=== PATIENT | female | born 1950 | race Caucasian/White ===

== ENCOUNTER 2017-09-14 05:33 | Inpatient (IN) | payer MEDICARE ==
[2017-09-14] MEDS: MORPHINE SULFATE 4 MG/ML DISP.SYRIN. IV/SQ ×4 (06:20→11:04)
[2017-09-14 09:20] LABS: BASO # 0.1 x10^3/uL (0.0-0.2); BASO % 1 % (0-3); EOS # 0.1 x10^3/uL (0.0-0.7); EOS % 1 % (0-3); HEMATOCRIT 24.4 % (36.0-47.0); HEMOGLOBIN 7.6 g/dL (12.0-15.5); LYMPH # 2.3 x10^3/uL (1.0-4.8); LYMPH % 15 % (24-48); MEAN CORPUSCULAR HEMOGLOBIN 27 pg (25-35); MEAN CORPUSCULAR HGB CONC 31 g/dL (31-37); MEAN CORPUSCULAR VOLUME 85 fL (79-100); MONO # 0.9 x10^3/uL (0.0-1.1); MONO % 6 % (0-9); NEUT % 78 % (31-73); PLATELET COUNT 366 x10^3/uL (140-400); RED BLOOD COUNT 2.86 x10^6/uL (3.50-5.40); RED CELL DISTRIBUTION WIDTH 17.8 % (11.5-14.5); WHITE BLOOD COUNT 15.4 x10^3/uL (4.0-11.0)
[2017-09-14 09:31] LABS: ADD MAN DIFF? YES
[2017-09-14 10:06] LABS: PROTHROMBIN TIME PATIENT 117.3 SEC (11.7-14.0)
[2017-09-14 10:08] LABS: INR > 15.0 (0.8-1.1)
[2017-09-14] MEDS ORDERED: ACETAMINOPHEN 325 MG TABLET. PO (10:30)
[2017-09-14] MEDS: PHYTONADIONE (VIT K1) IV 10 MG in IV NORMAL SALINE 50ML 50 ML IV (10:36)
[2017-09-14 10:56] LABS: ALBUMIN/GLOBULIN RATIO 0.4 (1.0-1.7); ALK PHOS 92 U/L (46-116); ALT (SGPT) 21 U/L (14-59); ANION GAP 9 (6-14); AST (SGOT) 20 U/L (15-37); BLOOD UREA NITROGEN 32 mg/dL (7-20); BUN/CREATININE RATIO 18 (6-20); CALCIUM 8.2 mg/dL (8.5-10.1); CARBON DIOXIDE 29 mmol/L (21-32); CHLORIDE 103 mmol/L (98-107); CREATININE 1.8 mg/dL (0.6-1.0); GFR 27.9; GLUCOSE 148 mg/dL (70-99); POTASSIUM 4.5 mmol/L (3.5-5.1); SODIUM 141 mmol/L (136-145); TOTAL BILIRUBIN 0.4 mg/dL (0.2-1.0); TOTAL PROTEIN 6.5 g/dL (6.4-8.2)
[2017-09-14 11:08] LABS: % BANDS 1 % (0-9); % LYMPHS 13 % (24-48); % MONOS 3 % (0-10); % SEGS 83 % (35-66); PLT ESTIMATE ADEQUATE (ADEQUATE)
[2017-09-14] MEDS: CHOLECALCIFEROL (VITAMIN D3) 5,000 UNIT CAPSULE PO (13:06)
[2017-09-14] MEDS: METOPROLOL TART IMMED RELEASE 25 MG TABLET. PO ×2 (13:07→20:24)
[2017-09-14] MEDS: FERROUS SULFATE 325 MG TABLET. PO (13:07)
[2017-09-14] MEDS: FUROSEMIDE 20 MG TABLET PO (13:07)
[2017-09-14] MEDS: MORPHINE SULFATE 4 MG/ML DISP.SYRIN. IV ×2 (13:30→20:12)
[2017-09-14 14:46] LABS: IMMEDIATE SPIN CROSSMATCH 1 6
[2017-09-14] MEDS: ONDANSETRON PF 4 MG/2 ML VIAL. IV (20:12)
[2017-09-15] MEDS: MORPHINE SULFATE 4 MG/ML DISP.SYRIN. IV (04:52)
[2017-09-15 05:30] LABS: ADD MAN DIFF? NO
[2017-09-15 05:42] LABS: BASO # 0.1 x10^3/uL (0.0-0.2); BASO % 1 % (0-3); EOS # 0.2 x10^3/uL (0.0-0.7); EOS % 1 % (0-3); LYMPH # 4.5 x10^3/uL (1.0-4.8); LYMPH % 22 % (24-48); MEAN CORPUSCULAR HEMOGLOBIN 27 pg (25-35); MEAN CORPUSCULAR HGB CONC 31 g/dL (31-37); MEAN CORPUSCULAR VOLUME 87 fL (79-100); MONO # 1.2 x10^3/uL (0.0-1.1); MONO % 6 % (0-9); NEUT # 14.4 x10^3uL (1.8-7.7); NEUT % 70 % (31-73); PLATELET COUNT 364 x10^3/uL (140-400); RED BLOOD COUNT 2.23 x10^6/uL (3.50-5.40); RED CELL DISTRIBUTION WIDTH 17.7 % (11.5-14.5); WHITE BLOOD COUNT 20.5 x10^3/uL (4.0-11.0)
[2017-09-15 05:46] LABS: INR 1.7 (0.8-1.1); PROTHROMBIN TIME PATIENT 19.3 SEC (11.7-14.0)
[2017-09-15 05:51] LABS: HEMATOCRIT 19.3 % (36.0-47.0)
[2017-09-15 06:13] LABS: ANION GAP 12 (6-14); BLOOD UREA NITROGEN 39 mg/dL (7-20); CALCIUM 8.2 mg/dL (8.5-10.1); CARBON DIOXIDE 27 mmol/L (21-32); CHLORIDE 100 mmol/L (98-107); GFR 15.5; GLUCOSE 172 mg/dL (70-99); SODIUM 139 mmol/L (136-145)
[2017-09-15] MEDS: ONDANSETRON PF 4 MG/2 ML VIAL. IV (07:44)
[2017-09-15] MEDS: FERROUS SULFATE 325 MG TABLET. PO (07:44)
[2017-09-15] MEDS: CHOLECALCIFEROL (VITAMIN D3) 5,000 UNIT CAPSULE PO (07:44)
[2017-09-15] MEDS: METOPROLOL TART IMMED RELEASE 25 MG TABLET. PO ×2 (07:45→21:00)
[2017-09-15] MEDS: FUROSEMIDE 20 MG TABLET PO (07:45)
[2017-09-15 08:50] LABS: IMMEDIATE SPIN CROSSMATCH 1
[2017-09-15] MEDS: amLODIPine BESYLATE 5 MG TABLET PO (10:24)
[2017-09-15] MEDS: ALLOPURINOL 300 MG TABLET. PO (11:14)
[2017-09-15] MEDS: SERTRALINE 50 MG TABLET. PO (11:14)
[2017-09-15] MEDS: IV NORMAL SALINE 500ML BAG 500 ML IV (11:30)
[2017-09-15] MEDS: IV NORMAL SALINE 1000ML BAG 1,000 ML IV ×2 (11:44→22:23)
[2017-09-15 12:03] LABS: CREATINE KINASE 693 U/L (26-192)
[2017-09-15 14:37] LABS: BILIRUBIN,URINE SMALL (NEG); CLARITY,URINE TURBID; GLUCOSE,URINE NEGATIVE (NEG); NITRITE,URINE NEGATIVE (NEG); PROTEIN,URINE 100 mg/dL (NEG-TRACE); UROBILINOGEN,URINE 0.2 mg/dL (0.2 mg/dL)
[2017-09-15 14:42] LABS: COLOR,URINE DK YELLOW
[2017-09-15 14:44] LABS: BACTERIA,URINE MANY /HPF (0-FEW); RBC,URINE TNTC /HPF (0-2); SQUAMOUS EPITHELIAL CELL,UR MANY /LPF; WBC,URINE TNTC /HPF (0-4)
[2017-09-15] MEDS: cefTRIAXone IV Push 1 GM VIAL. IVP (17:14)
[2017-09-15] MEDS ORDERED: METOPROLOL TART IMMED RELEASE 50 MG TABLET. PO (21:00)
[2017-09-15] MEDS: ATORVASTATIN CALCIUM 20 MG TABLET PO (21:04)
[2017-09-15] MEDS: ACETAMINOPHEN 500 MG TABLET PO (22:23)
[2017-09-16 04:47] LABS: MEAN CORPUSCULAR HGB CONC 31 g/dL (31-37)
[2017-09-16 05:18] LABS: HEMATOCRIT 17.8 % (36.0-47.0); HEMOGLOBIN 5.6 g/dL (12.0-15.5)
[2017-09-16] MEDS: IV NORMAL SALINE 1000ML BAG 1,000 ML IV ×3 (07:30→20:56)
[2017-09-16] MEDS: SERTRALINE 50 MG TABLET. PO (08:17)
[2017-09-16] MEDS: FERROUS SULFATE 325 MG TABLET. PO (08:18)
[2017-09-16] MEDS: ALLOPURINOL 300 MG TABLET. PO (08:18)
[2017-09-16] MEDS: CHOLECALCIFEROL (VITAMIN D3) 5,000 UNIT CAPSULE PO (08:18)
[2017-09-16] MEDS: amLODIPine BESYLATE 5 MG TABLET PO (09:00)
[2017-09-16] MEDS: METOPROLOL TART IMMED RELEASE 25 MG TABLET. PO ×2 (09:00→20:53)
[2017-09-16 14:31] LABS: MEAN CORPUSCULAR HEMOGLOBIN 28 pg (25-35); MEAN CORPUSCULAR HGB CONC 32 g/dL (31-37); MEAN CORPUSCULAR VOLUME 87 fL (79-100); PLATELET COUNT 244 x10^3/uL (140-400); RED BLOOD COUNT 2.24 x10^6/uL (3.50-5.40); RED CELL DISTRIBUTION WIDTH 17.5 % (11.5-14.5); WHITE BLOOD COUNT 12.8 x10^3/uL (4.0-11.0)
[2017-09-16 14:36] LABS: HEMATOCRIT 19.5 % (36.0-47.0); HEMOGLOBIN 6.3 g/dL (12.0-15.5)
[2017-09-16 14:48] LABS: ANION GAP 8 (6-14); BLOOD UREA NITROGEN 42 mg/dL (7-20); CALCIUM 7.8 mg/dL (8.5-10.1); CARBON DIOXIDE 29 mmol/L (21-32); CHLORIDE 104 mmol/L (98-107); CREATININE 2.6 mg/dL (0.6-1.0); GFR 18.3; GLUCOSE 162 mg/dL (70-99); POTASSIUM 4.3 mmol/L (3.5-5.1); SODIUM 141 mmol/L (136-145)
[2017-09-16] MEDS: cefTRIAXone IV Push 1 GM VIAL. IVP (16:00)
[2017-09-16] MEDS: ATORVASTATIN CALCIUM 20 MG TABLET PO (20:52)
[2017-09-16] MEDS: LACTOBACILLUS RHAMNOSUS GG 1 CAPSULE. PO (20:53)
[2017-09-16] MEDS: ACETAMINOPHEN 500 MG TABLET PO (23:58)
[2017-09-17 05:14] LABS: INR 1.6 (0.8-1.1); PROTHROMBIN TIME PATIENT 17.9 SEC (11.7-14.0)
[2017-09-17 05:39] LABS: ANION GAP 7 (6-14); BLOOD UREA NITROGEN 41 mg/dL (7-20); CALCIUM 7.6 mg/dL (8.5-10.1); CARBON DIOXIDE 27 mmol/L (21-32); CHLORIDE 106 mmol/L (98-107); CREATININE 2.2 mg/dL (0.6-1.0); GFR 22.1; GLUCOSE 121 mg/dL (70-99); POTASSIUM 4.7 mmol/L (3.5-5.1); SODIUM 140 mmol/L (136-145)
[2017-09-17 05:40] LABS: CREATINE KINASE 1125 U/L (26-192)
[2017-09-17 07:25] LABS: MEAN CORPUSCULAR HEMOGLOBIN 29 pg (25-35); MEAN CORPUSCULAR HGB CONC 33 g/dL (31-37); MEAN CORPUSCULAR VOLUME 88 fL (79-100); PLATELET COUNT 237 x10^3/uL (140-400); RED BLOOD COUNT 2.34 x10^6/uL (3.50-5.40); RED CELL DISTRIBUTION WIDTH 17.4 % (11.5-14.5); WHITE BLOOD COUNT 11.9 x10^3/uL (4.0-11.0)
[2017-09-17 07:26] LABS: HEMATOCRIT 20.6 % (36.0-47.0); HEMOGLOBIN 6.7 g/dL (12.0-15.5)
[2017-09-17] MEDS: METOPROLOL TART IMMED RELEASE 25 MG TABLET. PO ×2 (09:00→21:06)
[2017-09-17] MEDS: amLODIPine BESYLATE 5 MG TABLET PO (09:00)
[2017-09-17] MEDS: FERROUS SULFATE 325 MG TABLET. PO (09:32)
[2017-09-17] MEDS: LACTOBACILLUS RHAMNOSUS GG 1 CAPSULE. PO ×2 (09:32→21:02)
[2017-09-17] MEDS: ALLOPURINOL 300 MG TABLET. PO (09:33)
[2017-09-17] MEDS: CHOLECALCIFEROL (VITAMIN D3) 5,000 UNIT CAPSULE PO (09:33)
[2017-09-17] MEDS: SERTRALINE 50 MG TABLET. PO (09:35)
[2017-09-17] MEDS: IV NORMAL SALINE 1000ML BAG 1,000 ML IV ×4 (10:24→23:44)
[2017-09-17] MEDS: POLYETHYLENE GLYCOL 3350 17 GM PACKET. PO (12:07)
[2017-09-17] MEDS: DOCUSATE SODIUM 100 MG CAPSULE. PO (12:07)
[2017-09-17 14:02] LABS: IMMEDIATE SPIN CROSSMATCH 1
[2017-09-17] MEDS: cefTRIAXone IV Push 1 GM VIAL. IVP (16:59)
[2017-09-17] MEDS: ATORVASTATIN CALCIUM 20 MG TABLET PO (21:02)
[2017-09-18 04:10] LABS: ANION GAP 5 (6-14); BLOOD UREA NITROGEN 35 mg/dL (7-20); CALCIUM 8.2 mg/dL (8.5-10.1); CARBON DIOXIDE 30 mmol/L (21-32); CHLORIDE 108 mmol/L (98-107); CREATINE KINASE 623 U/L (26-192); CREATININE 1.9 mg/dL (0.6-1.0); GFR 26.2; GLUCOSE 126 mg/dL (70-99); POTASSIUM 5.1 mmol/L (3.5-5.1); SODIUM 143 mmol/L (136-145)
[2017-09-18] MEDS: ACETAMINOPHEN 500 MG TABLET PO ×2 (04:11→20:25)
[2017-09-18] MEDS: IV NORMAL SALINE 1000ML BAG 1,000 ML IV ×3 (09:15→18:34)
[2017-09-18] MEDS: CHOLECALCIFEROL (VITAMIN D3) 5,000 UNIT CAPSULE PO (09:15)
[2017-09-18] MEDS: CEFPODOXIME PROXETIL 100 MG TABLET. PO ×2 (09:15→20:25)
[2017-09-18] MEDS: FERROUS SULFATE 325 MG TABLET. PO (09:15)
[2017-09-18] MEDS: SERTRALINE 50 MG TABLET. PO (09:15)
[2017-09-18] MEDS: ALLOPURINOL 300 MG TABLET. PO (09:15)
[2017-09-18] MEDS: LACTOBACILLUS RHAMNOSUS GG 1 CAPSULE. PO ×2 (09:16→20:25)
[2017-09-18] MEDS: METOPROLOL TART IMMED RELEASE 25 MG TABLET. PO ×2 (09:16→20:28)
[2017-09-18] MEDS: amLODIPine BESYLATE 5 MG TABLET PO (09:16)
[2017-09-18 09:28] LABS: ADD MAN DIFF? NO
[2017-09-18 09:46] LABS: BASO # 0.1 x10^3/uL (0.0-0.2); BASO % 1 % (0-3); EOS # 0.2 x10^3/uL (0.0-0.7); EOS % 2 % (0-3); HEMATOCRIT 25.1 % (36.0-47.0); HEMOGLOBIN 7.8 g/dL (12.0-15.5); LYMPH # 1.3 x10^3/uL (1.0-4.8); LYMPH % 10 % (24-48); MEAN CORPUSCULAR HEMOGLOBIN 28 pg (25-35); MEAN CORPUSCULAR HGB CONC 31 g/dL (31-37); MEAN CORPUSCULAR VOLUME 91 fL (79-100); MONO # 0.6 x10^3/uL (0.0-1.1); MONO % 5 % (0-9); NEUT # 11.3 x10^3uL (1.8-7.7); NEUT % 83 % (31-73); PLATELET COUNT 243 x10^3/uL (140-400); RED BLOOD COUNT 2.75 x10^6/uL (3.50-5.40); RED CELL DISTRIBUTION WIDTH 17.4 % (11.5-14.5); WHITE BLOOD COUNT 13.6 x10^3/uL (4.0-11.0)
[2017-09-18 12:43] LABS: POC GLUCOSE 118 mg/dL (70-99)
[2017-09-18] MEDS: ATORVASTATIN CALCIUM 20 MG TABLET PO (20:25)
[2017-09-19] MEDS: IV NORMAL SALINE 1000ML BAG 1,000 ML IV ×2 (01:23→08:47)
[2017-09-19] MEDS: SERTRALINE 50 MG TABLET. PO (08:37)
[2017-09-19] MEDS: CEFPODOXIME PROXETIL 100 MG TABLET. PO (08:38)
[2017-09-19] MEDS: METOPROLOL TART IMMED RELEASE 25 MG TABLET. PO (08:38)
[2017-09-19] MEDS: LACTOBACILLUS RHAMNOSUS GG 1 CAPSULE. PO (08:38)
[2017-09-19] MEDS: FERROUS SULFATE 325 MG TABLET. PO (08:39)
[2017-09-19] MEDS: ALLOPURINOL 300 MG TABLET. PO (08:39)
[2017-09-19] MEDS: ACETAMINOPHEN 500 MG TABLET PO (08:39)
[2017-09-19] MEDS: amLODIPine BESYLATE 5 MG TABLET PO (08:39)
[2017-09-19] MEDS: CHOLECALCIFEROL (VITAMIN D3) 5,000 UNIT CAPSULE PO (08:39)
== END 2017-09-19 13:36 | disposition home or self-care (01) | DRG 604 ==
LOC: ER 05:33 → 5 SOUTH 10:14
PROC: 30233L1 Transfusion of Nonautologous Fresh Plasma into Peripheral Vein, Percutaneous Approach (ICD-10-PCS; principal; 2017-09-14)
PROC: 30233K1 Transfusion of Nonautologous Frozen Plasma into Peripheral Vein, Percutaneous Approach (ICD-10-PCS; 2017-09-14)
PROC: 30233N1 Transfusion of Nonautologous Red Blood Cells into Peripheral Vein, Percutaneous Approach (ICD-10-PCS; 2017-09-15)
PROC: 30233N1 Transfusion of Nonautologous Red Blood Cells into Peripheral Vein, Percutaneous Approach (ICD-10-PCS; 2017-09-16)
PROC: 30233N1 Transfusion of Nonautologous Red Blood Cells into Peripheral Vein, Percutaneous Approach (ICD-10-PCS; 2017-09-17)
DX: S70.12XA Contusion of left thigh, initial encounter (principal); E43 Unspecified severe protein-calorie malnutrition; N17.9 Acute kidney failure, unspecified; D68.9 Coagulation defect, unspecified; D62 Acute posthemorrhagic anemia; I48.2 Chronic atrial fibrillation; M62.82 Rhabdomyolysis; I50.9 Heart failure, unspecified; I13.0 Hypertensive heart and chronic kidney disease with heart failure and stage 1 through stage 4 chronic kidney disease, or unspecified chronic kidney disease; L97.909 Non-pressure chronic ulcer of unspecified part of unspecified lower leg with unspecified severity; Z68.42 Body mass index [BMI] 45.0-49.9, adult; N18.4 Chronic kidney disease, stage 4 (severe); Z91.81 History of falling; L60.2 Onychogryphosis; L60.0 Ingrowing nail; I73.9 Peripheral vascular disease, unspecified; B35.1 Tinea unguium; R29.6 Repeated falls; R26.81 Unsteadiness on feet; W18.30XA Fall on same level, unspecified, initial encounter; K59.00 Constipation, unspecified; I87.2 Venous insufficiency (chronic) (peripheral); E66.9 Obesity, unspecified; E78.00 Pure hypercholesterolemia, unspecified; Z96.653 Presence of artificial knee joint, bilateral; M19.90 Unspecified osteoarthritis, unspecified site; K21.9 Gastro-esophageal reflux disease without esophagitis; Z82.49 Family history of ischemic heart disease and other diseases of the circulatory system; Z79.01 Long term (current) use of anticoagulants; Y93.89 Activity, other specified; Y99.8 Other external cause status; Z83.3 Family history of diabetes mellitus; Z80.9 Family history of malignant neoplasm, unspecified; Y92.009 Unspecified place in unspecified non-institutional (private) residence as the place of occurrence of the external cause
CPT/HCPCS: 36415; 72192; 73502; 73552; 80048; 80053; 81001; 82550; 82962; 85007; 85014; 85018; 85025; 85027; 85610; 86850; 86900; 86901; 86920; 86927; 87086; 97116-GP; 97161-GP; 97165-GO; 97530-GO; 97535-GO; 99285; 99285-25; J0696; J2270; J2405; J3430; J7030; J7040; P9016; P9017

== ENCOUNTER 2020-05-05 12:00 | Inpatient (IN) | payer MEDICARE ==
[2020-05-05] VITALS (8 sets, daily range): BP systolic 114–137; BP diastolic 70–87
[~2020-05-05] VITALS: Ht 162.6 cm; Wt 141.8 kg
[~2020-05-05 12:00] MED LIST: ALBU2.5V8 INH; ALLO300T PO; AMLO5TAB10 PO; ATOR20TA58 PO; CARV25TA2 PO; CHOL500050 PO; DARB10SY IJ; DRON2.5C2 PO; FAMO20TA5 PO; FERR325T14 PO; FURO20TA3 PO; IPRA0.2S5 IH; METO25TA4 PO; METO50TA6 PO; SERT50TA8 PO; VALS1TAB22 PO; WARF-31 PO; WARF1TAB2 PO; WARF2TAB96 PO
[2020-05-05] MEDS ORDERED: IV RINGERS,LACTATED 1000ML 1,000 ML IV SCH (12:50)
[2020-05-05] MEDS ORDERED: LIDOCAINE 1% PF 2 ML VIAL. ID PRN (13:00)
[2020-05-05] MEDS ORDERED: ONDANSETRON PF 4 MG/2 ML VIAL. IVP PRN ×2 (13:00→18:15)
[2020-05-05] MEDS ORDERED: PROCHLORPERAZINE 10 MG/2 ML VIAL. IVP PRN (13:00)
[2020-05-05] MEDS ORDERED: fentaNYL PF VIAL 100 MCG/2 ML VIAL IVP PRN (13:00)
[2020-05-05] MEDS ORDERED: TORS20TA2 (14:04)
[2020-05-05] MEDS ORDERED: METO100T7 (14:04)
[2020-05-05] MEDS ORDERED: LIDOCAINE 2% PF 5 ML VIAL. ONE (17:05)
[2020-05-05] MEDS ORDERED: DEXAMETHASONE SOD PHOS 4 MG/ML VIAL ONE (17:05)
[2020-05-05] MEDS ORDERED: PROPOFOL 10 MG/ML (20ML) VIAL. IV ONE (17:05)
[2020-05-05] MEDS ORDERED: FAMOTIDINE 20 MG/2 ML VIAL ONE (17:05)
[2020-05-05] MEDS ORDERED: ONDANSETRON PF 4 MG/2 ML VIAL. ONE (17:07)
[2020-05-05] MEDS ORDERED: fentaNYL PF VIAL 100 MCG/2 ML VIAL ONE ×2 (17:21→18:02)
[2020-05-05] MEDS ORDERED: GLYCOPYRROLATE 1 MG/5 ML VIAL. ONE (17:28)
[2020-05-05] MEDS ORDERED: SEVOFLURANE 31 TO 60 MINUTES. IH ONE (17:40)
[2020-05-05] MEDS: fentaNYL PF VIAL 100 MCG/2 ML VIAL IVP PRN ×2 (18:08→18:30)
[2020-05-05] MEDS ORDERED: oxyCODONE/APAP 5/325 1 TAB TABLET PO PRN (18:15)
[2020-05-05] MEDS ORDERED: BISACODYL 10 MG SUPP.RECT. PR PRN (18:15)
--- NOTE | 2020-05-05 18:17 | PDOC1 ---
History and Physical Date of Admission Date of Admission DATE: 05/05/20 TIME: 18:03 Identification/Chief Complaint Chief Complaint Left foot injury Source Source: Patient History of Present Illness History of Present Illness Patient is a 69-year-old female, with past medical history of A. fib on warfarin therapy, presents to the ER after left foot injury she sustained this morning at home. Patient states she hit her left first toe on a door frame this morning in her house. Her foot began bleeding at that time so she wrapped her foot on a towel, and contacted her family members. She denies any significant pain at the time of the injury, but she was urged to seek medical attention by her family because of significant bleeding. Patient denies any other associated symptoms, including fever or chills. Past Medical History Cardiovascular: AFIB, HTN Pulmonary: Other GI: Constipation, GERD Heme/Onc: Other Psych: Other Musculoskeletal: Other Infectious disease: Other Renal/: Chronic renal insuff, Other Past Surgical History Past Surgical History: Other (Bilateral knee replacement) Family History Family History: Cancer, Coronary Artery Disease, Diabetes, Kidney Disease Social History Smoke: No ALCOHOL: none Drugs: None Current Problem List Problem List Left toe fracture Current Medications Current Medications Current Medications Ondansetron HCl (Zofran) 4 mg PRN Q6HRS PRN IVP NAUSEA/VOMITING; Start 05/05/20 at 13:00; Stop 05/05/20 at 20:00 Fentanyl Citrate (Fentanyl 2ml Vial) 25 mcg PRN Q5MIN PRN IVP MILD PAIN 1-3; Start 05/05/20 at 13:00; Stop 05/05/20 at 20:00 Fentanyl Citrate (Fentanyl 2ml Vial) 50 mcg PRN Q5MIN PRN IVP MODERATE TO SEVERE PAIN; Start 05/05/20 at 13:00; Stop 05/05/20 at 20:00 Morphine Sulfate (Morphine Sulfate) 1 mg PRN Q10MIN PRN IVP SEVERE PAIN 7-10; Start 05/05/20 at 13:00; Stop 05/05/20 at 20:00 Ringer's Solution 1,000 ml @ 30 mls/hr Q24H IV Last administered on 05/05/20at 16:25; Start 05/05/20 at 12:50; Stop 05/06/20 at 00:49 Lidocaine HCl (Xylocaine-Mpf 1% 2ml Vial) 2 ml 1X PRN PRN ID IV START; Start 05/05/20 at 13:00; Stop 05/05/20 at 20:00 Hydromorphone HCl (Dilaudid) 0.5 mg PRN Q10MIN PRN IVP SEV PAIN, Second choice; Start 05/05/20 at 13:00; Stop 05/05/20 at 20:00 Prochlorperazine Edisylate (Compazine) 5 mg PACU PRN PRN IVP NAUSEA, MRX1; Start 05/05/20 at 13:00; Stop 05/05/20 at 20:00 Propofol (Diprivan) 200 mg STK-MED ONCE IV ; Start 05/05/20 at 17:05; Stop 05/05/20 at 17:06; Status DC Dexamethasone Sodium Phosphate (Decadron) 4 mg STK-MED ONCE .ROUTE ; Start 05/05/20 at 17:05; Stop 05/05/20 at 17:06; Status DC Famotidine (Pepcid Vial) 20 mg STK-MED ONCE .ROUTE ; Start 05/05/20 at 17:05; Stop 05/05/20 at 17:06; Status DC Lidocaine HCl (Lidocaine Pf 2% Vial) 5 ml STK-MED ONCE .ROUTE ; Start 05/05/20 at 17:05; Stop 05/05/20 at 17:06; Status DC Ondansetron HCl (Zofran) 4 mg STK-MED ONCE .ROUTE ; Start 05/05/20 at 17:07; Stop 05/05/20 at 17:07; Status DC Fentanyl Citrate (Fentanyl 2ml Vial) 100 mcg STK-MED ONCE .ROUTE ; Start at 17:21; Stop 05/05/20 at 17:21; Status DC Ephedrine Sulfate (Akovaz) 50 mg STK-MED ONCE .ROUTE ; Start 05/05/20 at 17:21; Stop 05/05/20 at 17:22; Status DC Cefazolin Sodium/ Dextrose 50 ml @ 100 mls/hr 1X PREOP PRN IV PRIOR TO PROCEDURE Last administered on 05/05/20at 17:30; Start 05/05/20 at 17:30; Stop 05/06/20 at 17:29 Glycopyrrolate (Robinul) 1 mg STK-MED ONCE .ROUTE ; Start 05/05/20 at 17:28; Stop 05/05/20 at 17:28; Status DC Sevoflurane (Ultane) 30 ml STK-MED ONCE IH ; Start 05/05/20 at 17:40; Stop 05/05/20 at 17:40; Status DC Fentanyl Citrate (Fentanyl 2ml Vial) 100 mcg STK-MED ONCE .ROUTE ; Start 05/05/20 at 18:02; Stop 05/05/20 at 18:02; Status DC Active Scripts Active Reported Metoprolol Tartrate 100 Mg Tablet 100 BID Torsemide 20 Mg Tablet 20 DAILY Coumadin (Warfarin Sodium) 1 Mg Tablet 1 Tab PO QODAY Warfarin Sodium 2 Mg Tablet 1 Tab PO QODAY Amlodipine Besylate 5 Mg Tablet 5 Mg PO DAILY Atorvastatin Calcium 20 Mg Tablet 20 Mg PO HS Allopurinol 300 Mg Tablet 300 Mg PO DAILY Sertraline Hcl 50 Mg Tablet 50 Mg PO DAILY Vitamin D (Cholecalciferol (Vitamin D3)) 50,000 Unit Capsule 50,000 Unit PO DAILY Ferrous Sulfate 325 Mg Tablet 325 Mg PO DAILY Allergies Allergies: Coded Allergies: No Known Allergies (Verified Allergy, Unknown, 10/05/15) ROS General: No: Chills, Night Sweats, Fatigue, Malaise, Appetite, Other PSYCHOLOGICAL ROS: No: Anxiety, Behavioral Disorder, Concentration difficultie, Decreased libido, Depression, Disorientation, Hallucinations, Hostility, Irritablity, Memory difficulties, Mood Swings, Obsessive thoughts, Physical abuse, Sexual abuse, Sleep disturbances, Suicidal ideation, Other Eyes: No Blurry vision, No Decreased vision, No Double vision, No Dry eyes, No Excessive tearing, No Eye Pain, No Itchy Eyes, No Loss of vision, No Photophobia, No Scotomata, No Uses contacts, No Uses glasses, No Other HEENT: No: Heacaches, Visual Changes, Hearing change, Nasal congestion, Nasal discharge, Oral lesions, Sinus pain, Sore Throat, Epistaxis, Sneezing, Snoring, Tinnitus, Vertigo, Vocal changes, Other ALLERGY AND IMMUNOLOGY: No: Hives, Insect Bite Sensitivity, Itchy/Watery Eyes, Nasal Congestion, Post Nasal Drip, Seasonal Allergies, Other Hematological and Lymphatic: YES: Bleeding Problems ENDOCRINE: No: Breast Changes, Galactorrhea, Hair Pattern Changes, Hot Flashes, Malaise/lethargy, Mood Swings, Palpitations, Polydipsia/polyuria, Skin Changes, Temperature Intolerance, Unexpected Weight Changes, Other Respiratory: No: Cough, Hemoptysis, Orthopnea, Pleuritic Pain, Shortness of breath, SOB with excertion, Sputum Changes, Stridor, Tachypnea, Wheezing, Other Cardiovascular: No Chest Pain, No Palpitations, No Orthopnea, No Paroxysmal Noc. Dyspnea, No Edema, No Lt Headedness, No Other Gastrointestinal: No Nausea, No Vomiting, No Abdominal Pain, No Diarrhea, No Constipation, No Melena, No Hematochezia, No Other Genitourinary: No Dysuria, No Frequency, No Incontinence, No Hematuria, No Retention, No Discharge, No Urgency, No Pain, No Flank Pain, No Other, No , No , No , No , No , No , No Musculoskeletal: No Gait Disturbance, No Joint Pain, No Joint Stiffness, No Joint Swelling, No Muscle Pain, No Muscular Weakness, No Pain In:, No Swelling In:, No Other Skin: No Dry Skin, No Eczema, No Hair Changes, No Lumps, No Mole Changes, No Mottling, No Nail Changes, No Pruritus, No Rash, No Skin Lesion Changes, No Other, No Acne Physical Exam General: Alert, Oriented X3, Cooperative, No acute distress HEENT: PERRLA Lungs: Clear to auscultation, Normal air movement Heart: RRR, no murmurs Cardiovascular: S1, S2 Abdomen: Normal bowel sounds, Soft, No tenderness, No hepatosplenomegaly, No masses Extremities: Other (Left big toe wrapped in bandage, controlled bleeding. Bilateral pitting edema and venous stasis changes) Neuro: Normal speech, Other (Decreased sensation to bilateral feet) Psych/Mental Status: Mental status NL, Mood NL Vitals Vitals Vital Signs Date Time Temp Pulse Resp B/P (MAP) Pulse Ox O2 Delivery O2 Flow Rate FiO2 05/05/20 15:58 97.6 78 19 139/73 98 Room Air 97.6 Labs Labs Laboratory Tests Test 05/05/20 14:00 SARS-CoV-2 Antigen (Rapid) Negative (NEGATIVE) Laboratory Tests Test 05/05/20 14:00 SARS-CoV-2 Antigen (Rapid) Negative (NEGATIVE) VTE Prophylaxis Ordered VTE Prophylaxis Devices: Contraindicated VTE Pharmacological Prophylaxi: Contraindicated Assessment/Plan Assessment/Plan Patient suffered a fracture to her left big toe and was transferred to [facility] for surgical intervention. General surgery to operate tonight. Patient denies any pain to her toes, likely due to history of neuropathy. We will manage patient's pain, blood sugar, and INR. PT/OT. Full code. CHRISTINE ARECHIGA MD May 05, 2020 18:17
--- NOTE | 2020-05-05 18:38 | PDOC4 ---
Operative Note Operative Note Date of surgery: 05/05/2020 Preoperative diagnosis: Open left great toe fracture Postoperative diagnosis: Same Operative procedure: Irrigation debridement and fixation of open left great toe fracture and laceration repair Surgeon: Tyrone Anesthesia: General Estimated blood loss: 25 cc Complications: None Operative indications: Zehra is a 69-year-old female that presented to [facility] emergency department today after stubbing her toe on a door frame while walking. She had the sudden onset of deformity of her toe and bleeding and was observed to have an open great toe fracture and was sent to [place] for further evaluation and treatment. I had gone over with her that there is increa sed risk because of the open fracture of infection possibility of nonhealing nail deformity, ongoing pain or other complications. We talked about the rationale for operative treatment including cleaning the area thoroughly fixation of her fracture and repair of the laceration and the possibility even under the best of circumstances of infection nonhealing pain medical or other anesthetic complications among others all her questions were answered and she wishes to proceed with surgical evaluation and treatment. Operative text: Patient was identified procedure verified patient placed in the supine position on the operating table. After adequate amounts of general anesthesia were administered the left lower extremity was prepped and draped in standard sterile fashion. After timeout was performed patient procedure identified and verified the left great toe was debrided and clotted blood was removed and any devitalized tissue removed. There was no gross contamination noted. The nail fold area was preserved but she had a large laceration at the level of the fracture extending obliquely around the medial and lateral aspects of the toe. All toenails were long and put her at more risk of trauma and all 5 toenails were trimmed. The great toe was then reduced and pinned under fluoroscopic guidance with a 0.062 K wire. Lacerations were repaired with nylon suture in a simple fashion. K wire was trimmed and a Demetris ball was placed for protection. Sterile dressings were then placed. Patient was returned to recovery room in stable condition having tolerated procedure well PAMELA GARY MD May 05, 2020 18:38
[2020-05-05] MEDS ORDERED: MORPHINE SULFATE 2 MG/ML VIAL. ONE (18:43)
[2020-05-05] MEDS: MORPHINE SULFATE 2 MG/ML VIAL. IVP PRN ×2 (18:47→19:08)
[2020-05-05] MEDS ORDERED: HYDROmorphone 2 MG/ML VIAL ONE (19:13)
[2020-05-05] MEDS: HYDROmorphone 2 MG/ML VIAL IVP PRN ×3 (19:20→19:50)
[2020-05-05] MEDS: METOPROLOL TART IMMED RELEASE 50 MG TABLET. PO SCH (20:46)
[2020-05-05] MEDS: ATORVASTATIN CALCIUM 20 MG TABLET PO SCH (20:46)
[2020-05-05 20:52] LABS: PROTHROMBIN TIME PATIENT 26.3 SEC (11.7-14.0)
[2020-05-06] VITALS (7 sets, daily range): BP systolic 95–117; BP diastolic 41–81
[2020-05-06 05:08] LABS: BASO % 0 % (0-3); EOS % 0 % (0-3); HEMATOCRIT 37.6 % (36.0-47.0); LYMPH # 0.5 x10^3/uL (1.0-4.8); LYMPH % 5 % (24-48); MEAN CORPUSCULAR HEMOGLOBIN 29 pg (25-35); MEAN CORPUSCULAR HGB CONC 32 g/dL (31-37); MEAN CORPUSCULAR VOLUME 91 fL (79-100); MONO # 0.2 x10^3/uL (0.0-1.1); MONO % 2 % (0-9); NEUT # 9.8 x10^3/uL (1.8-7.7); NEUT % 93 % (31-73); PLATELET COUNT 106 x10^3/uL (140-400); RED BLOOD COUNT 4.12 x10^6/uL (3.50-5.40); RED CELL DISTRIBUTION WIDTH 18.4 % (11.5-14.5); WHITE BLOOD COUNT 10.5 x10^3/uL (4.0-11.0)
[2020-05-06 05:15] LABS: PROTHROMBIN TIME PATIENT 23.9 SEC (11.7-14.0)
[2020-05-06 05:40] LABS: CALCIUM 8.4 mg/dL (8.5-10.1); CREATININE 1.9 mg/dL (0.6-1.0); GFR 26.1; POTASSIUM 5.2 mmol/L (3.5-5.1)
[2020-05-06] MEDS: METOPROLOL TART IMMED RELEASE 50 MG TABLET. PO SCH ×2 (08:26→21:17)
[2020-05-06] MEDS: FERROUS SULFATE 325 MG TABLET. PO SCH (08:26)
[2020-05-06] MEDS: amLODIPine BESYLATE 5 MG TABLET PO SCH (08:26)
[2020-05-06] MEDS: TORSEMIDE 20 MG TABLET. PO SCH (08:26)
[2020-05-06 10:52] LABS: % LYMPHS 5 % (24-48); % MONOS 2 % (0-10); % SEGS 93 % (35-66); ACANTHOCYTES OCC; ANISOCYTOSIS SLIGHT; PLT ESTIMATE DECREASED (ADEQUATE); POLYCHROMASIA SLIGHT
--- NOTE | 2020-05-06 13:51 | PDOC ---
PROGRESS NOTES Date of Service: DATE: 05/06/20 TIME: 13:44 Chief Complaint Chief Complaint Open left great toe fracture Atrial fibrillation essential hypertension chronic anticoagulation Plan: PT to evaluate continue home meds if ok with ortho will discharge later in the day. History of Present Illness History of Present Illness No acute events reported overnight, case discussed with nursing staff patient in no acute distress no complaints during my visit Vitals Vitals Vital Signs Date Time Temp Pulse Resp B/P (MAP) Pulse Ox O2 Delivery O2 Flow Rate FiO2 05/06/20 10:06 97.6 78 18 95/66 (76) 91 Room Air 97.6 05/06/20 09:27 6.0 Physical Exam General: Alert, Oriented X3, Cooperative, No acute distress Lungs: Clear, Other Abdomen: Normal bowel sounds, Soft, No tenderness, No hepatosplenomegaly, No masses Extremities: Other (Left big toe wrapped in bandage, controlled bleeding. Bilateral pitting edema and venous stasis changes) Labs LABS Laboratory Tests Test 05/05/20 14:00 05/05/20 20:35 05/06/20 04:00 Coronavirus (PCR) Not detected (Not Detected) SARS-CoV-2 Antigen (Rapid) Negative (NEGATIVE) Prothrombin Time 26.3 SEC (11.7-14.0) 23.9 SEC (11.7-14.0) Prothromb Time International Ratio 2.4 (0.8-1.1) 2.2 (0.8-1.1) White Blood Count 10.5 x10^3/uL (4.0-11.0) Red Blood Count 4.12 x10^6/uL (3.50-5.40) Hemoglobin 12.0 g/dL (12.0-15.5) Hematocrit 37.6 % (36.0-47.0) Mean Corpuscular Volume 91 fL (79-100) Mean Corpuscular Hemoglobin 29 pg (25-35) Mean Corpuscular Hemoglobin Concent 32 g/dL (31-37) Red Cell Distribution Width 18.4 % (11.5-14.5) Platelet Count 106 x10^3/uL (140-400) Neutrophils (%) (Auto) 93 % (31-73) Lymphocytes (%) (Auto) 5 % (24-48) Monocytes (%) (Auto) 2 % (0-9) Eosinophils (%) (Auto) 0 % (0-3) Basophils (%) (Auto) 0 % (0-3) Neutrophils # (Auto) 9.8 x10^3/uL (1.8-7.7) Lymphocytes # (Auto) 0.5 x10^3/uL (1.0-4.8) Monocytes # (Auto) 0.2 x10^3/uL (0.0-1.1) Eosinophils # (Auto) 0.0 x10^3/uL (0.0-0.7) Basophils # (Auto) 0.0 x10^3/uL (0.0-0.2) Segmented Neutrophils % 93 % (35-66) Lymphocytes % 5 % (24-48) Monocytes % 2 % (0-10) Platelet Estimate Decreased (ADEQUATE) Polychromasia Slight Anisocytosis Slight Acanthocytes Occ Sodium Level 139 mmol/L (136-145) Potassium Level 5.2 mmol/L (3.5-5.1) Chloride Level 104 mmol/L (98-107) Carbon Dioxide Level 25 mmol/L (21-32) Anion Gap 10 (6-14) Blood Urea Nitrogen 37 mg/dL (7-20) Creatinine 1.9 mg/dL (0.6-1.0) Estimated GFR (Cockcroft-Gault) 26.1 Glucose Level 278 mg/dL (70-99) Calcium Level 8.4 mg/dL (8.5-10.1) Comment Review of Relevant I have reviewed the following items garfield (where applicable) has been applied. Labs Laboratory Tests Test 05/05/20 14:00 05/05/20 20:35 05/06/20 04:00 Coronavirus (PCR) Not detected (Not Detected) SARS-CoV-2 Antigen (Rapid) Negative (NEGATIVE) Prothrombin Time 26.3 SEC (11.7-14.0) 23.9 SEC (11.7-14.0) Prothromb Time International Ratio 2.4 (0.8-1.1) 2.2 (0.8-1.1) White Blood Count 10.5 x10^3/uL (4.0-11.0) Red Blood Count 4.12 x10^6/uL (3.50-5.40) Hemoglobin 12.0 g/dL (12.0-15.5) Hematocrit 37.6 % (36.0-47.0) Mean Corpuscular Volume 91 fL (79-100) Mean Corpuscular Hemoglobin 29 pg (25-35) Mean Corpuscular Hemoglobin Concent 32 g/dL (31-37) Red Cell Distribution Width 18.4 % (11.5-14.5) Platelet Count 106 x10^3/uL (140-400) Neutrophils (%) (Auto) 93 % (31-73) Lymphocytes (%) (Auto) 5 % (24-48) Monocytes (%) (Auto) 2 % (0-9) Eosinophils (%) (Auto) 0 % (0-3) Basophils (%) (Auto) 0 % (0-3) Neutrophils # (Auto) 9.8 x10^3/uL (1.8-7.7) Lymphocytes # (Auto) 0.5 x10^3/uL (1.0-4.8) Monocytes # (Auto) 0.2 x10^3/uL (0.0-1.1) Eosinophils # (Auto) 0.0 x10^3/uL (0.0-0.7) Basophils # (Auto) 0.0 x10^3/uL (0.0-0.2) Segmented Neutrophils % 93 % (35-66) Lymphocytes % 5 % (24-48) Monocytes % 2 % (0-10) Platelet Estimate Decreased (ADEQUATE) Polychromasia Slight Anisocytosis Slight Acanthocytes Occ Sodium Level 139 mmol/L (136-145) Potassium Level 5.2 mmol/L (3.5-5.1) Chloride Level 104 mmol/L (98-107) Carbon Dioxide Level 25 mmol/L (21-32) Anion Gap 10 (6-14) Blood Urea Nitrogen 37 mg/dL (7-20) Creatinine 1.9 mg/dL (0.6-1.0) Estimated GFR (Cockcroft-Gault) 26.1 Glucose Level 278 mg/dL (70-99) Calcium Level 8.4 mg/dL (8.5-10.1) Laboratory Tests Test 05/05/20 14:00 05/05/20 20:35 05/06/20 04:00 Coronavirus (PCR) Not detected (Not Detected) SARS-CoV-2 Antigen (Rapid) Negative (NEGATIVE) Prothrombin Time 26.3 SEC (11.7-14.0) 23.9 SEC (11.7-14.0) Prothromb Time International Ratio 2.4 (0.8-1.1) 2.2 (0.8-1.1) White Blood Count 10.5 x10^3/uL (4.0-11.0) Red Blood Count 4.12 x10^6/uL (3.50-5.40) Hemoglobin 12.0 g/dL (12.0-15.5) Hematocrit 37.6 % (36.0-47.0) Mean Corpuscular Volume 91 fL (79-100) Mean Corpuscular Hemoglobin 29 pg (25-35) Mean Corpuscular Hemoglobin Concent 32 g/dL (31-37) Red Cell Distribution Width 18.4 % (11.5-14.5) Platelet Count 106 x10^3/uL (140-400) Neutrophils (%) (Auto) 93 % (31-73) Lymphocytes (%) (Auto) 5 % (24-48) Monocytes (%) (Auto) 2 % (0-9) Eosinophils (%) (Auto) 0 % (0-3) Basophils (%) (Auto) 0 % (0-3) Neutrophils # (Auto) 9.8 x10^3/uL (1.8-7.7) Lymphocytes # (Auto) 0.5 x10^3/uL (1.0-4.8) Monocytes # (Auto) 0.2 x10^3/uL (0.0-1.1) Eosinophils # (Auto) 0.0 x10^3/uL (0.0-0.7) Basophils # (Auto) 0.0 x10^3/uL (0.0-0.2) Segmented Neutrophils % 93 % (35-66) Lymphocytes % 5 % (24-48) Monocytes % 2 % (0-10) Platelet Estimate Decreased (ADEQUATE) Polychromasia Slight Anisocytosis Slight Acanthocytes Occ Sodium Level 139 mmol/L (136-145) Potassium Level 5.2 mmol/L (3.5-5.1) Chloride Level 104 mmol/L (98-107) Carbon Dioxide Level 25 mmol/L (21-32) Anion Gap 10 (6-14) Blood Urea Nitrogen 37 mg/dL (7-20) Creatinine 1.9 mg/dL (0.6-1.0) Estimated GFR (Cockcroft-Gault) 26.1 Glucose Level 278 mg/dL (70-99) Calcium Level 8.4 mg/dL (8.5-10.1) Medications Current Medications Ondansetron HCl (Zofran) 4 mg PRN Q6HRS PRN IVP NAUSEA/VOMITING; Start 05/05/20 at 13:00; Stop 05/05/20 at 20:00; Status DC Fentanyl Citrate (Fentanyl 2ml Vial) 25 mcg PRN Q5MIN PRN IVP MILD PAIN 1-3; Start 05/05/20 at 13:00; Stop 05/05/20 at 20:00; Status DC Fentanyl Citrate (Fentanyl 2ml Vial) 50 mcg PRN Q5MIN PRN IVP MODERATE TO SEVERE PAIN Last administered on 05/05/20at 18:30; Start 05/05/20 at 13:00; Stop 05/05/20 at 20:00; Status DC Morphine Sulfate (Morphine Sulfate) 1 mg PRN Q10MIN PRN IVP SEVERE PAIN 7-10 Last administered on 05/05/20at 19:08; Start 05/05/20 at 13:00; Stop 05/05/20 at 20:00; Status DC Ringer's Solution 1,000 ml @ 30 mls/hr Q24H IV Last administered on 05/05/20at 16:25; Start 05/05/20 at 12:50; Stop 05/06/20 at 00:49; Status DC Lidocaine HCl (Xylocaine-Mpf 1% 2ml Vial) 2 ml 1X PRN PRN ID IV START; Start 05/05/20 at 13:00; Stop 05/05/20 at 20:00; Status DC Hydromorphone HCl (Dilaudid) 0.5 mg PRN Q10MIN PRN IVP SEV PAIN, Second choice Last administered on 05/05/20at 19:50; Start 05/05/20 at 13:00; Stop 05/05/20 at 20:00; Status DC Prochlorperazine Edisylate (Compazine) 5 mg PACU PRN PRN IVP NAUSEA, MRX1; Start 05/05/20 at 13:00; Stop 05/05/20 at 20:00; Status DC Propofol (Diprivan) 200 mg STK-MED ONCE IV ; Start 05/05/20 at 17:05; Stop 05/05/20 at 17:06; Status DC Dexamethasone Sodium Phosphate (Decadron) 4 mg STK-MED ONCE .ROUTE ; Start 05/05/20 at 17:05; Stop 05/05/20 at 17:06; Status DC Famotidine (Pepcid Vial) 20 mg STK-MED ONCE .ROUTE ; Start 05/05/20 at 17:05; Stop 05/05/20 at 17:06; Status DC Lidocaine HCl (Lidocaine Pf 2% Vial) 5 ml STK-MED ONCE .ROUTE ; Start 05/05/20 at 17:05; Stop 05/05/20 at 17:06; Status DC Ondansetron HCl (Zofran) 4 mg STK-MED ONCE .ROUTE ; Start 05/05/20 at 17:07; Stop 05/05/20 at 17:07; Status DC Fentanyl Citrate (Fentanyl 2ml Vial) 100 mcg STK-MED ONCE .ROUTE ; Start 05/05/20 at 17:21; Stop 05/05/20 at 17:21; Status DC Ephedrine Sulfate (Akovaz) 50 mg STK-MED ONCE .ROUTE ; Start 05/05/20 at 17:21; Stop 05/05/20 at 17:22; Status DC Cefazolin Sodium/ Dextrose 50 ml @ 100 mls/hr 1X PREOP PRN IV PRIOR TO PROCEDURE Last administered on 05/05/20at 17:30; Start 05/05/20 at 17:30; Stop 05/06/20 at 17:29 Glycopyrrolate (Robinul) 1 mg STK-MED ONCE .ROUTE ; Start 05/05/20 at 17:28; Stop 05/05/20 at 17:28; Status DC Sevoflurane (Ultane) 30 ml STK-MED ONCE IH ; Start 05/05/20 at 17:40; Stop 05/05/20 at 17:40; Status DC Amlodipine Besylate (Norvasc) 5 mg DAILY PO Last administered on 05/06/20at 08:26; Start 05/06/20 at 09:00 Atorvastatin Calcium (Lipitor) 20 mg HS PO Last administered on 05/05/20at 20:46; Start 05/05/20 at 21:00 Ferrous Sulfate (Feosol) 325 mg DAILY PO Last administered on 05/06/20at 08:26; Start 05/06/20 at 09:00 Torsemide (Demadex) 20 mg DAILY PO Last administered on 05/06/20at 08:26; Start 05/06/20 at 09:00 Metoprolol Tartrate (Lopressor) 100 mg BID PO Last administered on 05/06/20at 08:26; Start 05/05/20 at 21:00 Fentanyl Citrate (Fentanyl 2ml Vial) 100 mcg STK-MED ONCE .ROUTE ; Start 05/05/20 at 18:02; Stop 05/05/20 at 18:02; Status DC Warfarin Sodium (Coumadin) 5 mg DAILY16 PO ; Start 05/06/20 at 16:00 Ondansetron HCl (Zofran) 4 mg PRN Q6HRS PRN IVP NAUSEA/VOMITING; Start 05/05/20 at 18:15 Acetaminophen/ Hydrocodone Bitart (Lortab 5/325) 1 tab PRN Q4HRS PRN PO MODERATE PAIN; Start 05/05/20 at 18:15 Oxycodone/ Acetaminophen (Percocet 5/325) 1 tab PRN Q4HRS PRN PO SEVERE PAIN Last administered on 05/06/20at 08:27; Start 05/05/20 at 18:15 Bisacodyl (Dulcolax Supp) 10 mg PRN DAILY PRN VT CONSTIPATION; Start 05/05/20 at 18:15 Morphine Sulfate (Morphine Sulfate) 2 mg STK-MED ONCE .ROUTE ; Start 05/05/20 at 18:43; Stop 05/05/20 at 18:44; Status DC Hydromorphone HCl (Dilaudid) 2 mg STK-MED ONCE .ROUTE ; Start 05/05/20 at 19:13; Stop 05/05/20 at 19:13; Status DC Warfarin Sodium (Coumadin Per Physician) 1 each PRN DAILY PRN MC SEE COMMENTS Last administered on 05/06/20at 08:04; Start 05/06/20 at 16:00 Active Scripts Active Reported Metoprolol Tartrate 100 Mg Tablet 100 BID Torsemide 20 Mg Tablet 20 DAILY Coumadin (Warfarin Sodium) 1 Mg Tablet 1 Tab PO QODAY Warfarin Sodium 2 Mg Tablet 1 Tab PO QODAY Amlodipine Besylate 5 Mg Tablet 5 Mg PO DAILY Atorvastatin Calcium 20 Mg Tablet 20 Mg PO HS Allopurinol 300 Mg Tablet 300 Mg PO DAILY Sertraline Hcl 50 Mg Tablet 50 Mg PO DAILY Vitamin D (Cholecalciferol (Vitamin D3)) 50,000 Unit Capsule 50,000 Unit PO DAILY Ferrous Sulfate 325 Mg Tablet 325 Mg PO DAILY Vitals/I & O Vital Sign - Last 24 Hours 05/05/20 05/05/20 05/05/20 05/05/20 14:00 15:00 15:58 17:49 Temp 98.2 97.6 97.6 98.2 97.6 97.6 Pulse 85 78 106 Resp B/P (MAP) 135/74 (94) 139/73 130/64 Pulse Ox 92 98 98 O2 Delivery Room Air Room Air Room Air Simple Mask O2 Flow Rate 6 05/05/20 05/05/20 05/05/20 05/05/20 18:00 18:05 18:08 18:20 Temp 97.6 97.6 97.6 97.6 Pulse 94 87 Resp B/P (MAP) 122/83 143/78 Pulse Ox 95 98 95 O2 Delivery Mask Simple Mask Simple Mask Room Air O2 Flow Rate 6 6 6.0 05/05/20 05/05/20 05/05/20 05/05/20 18:30 18:35 18:47 18:50 Temp 97.6 97.6 97.6 97.6 Pulse 82 82 Resp B/P (MAP) 158/62 141/79 Pulse Ox 95 95 95 95 O2 Delivery Room Air Room Air Room Air Room Air 05/05/20 05/05/20 05/05/20 05/05/20 19:05 19:08 19:20 19:20 Temp 97.6 97.6 97.6 97.6 Pulse 86 88 Resp B/P (MAP) 146/66 162/79 Pulse Ox 90 95 92 94 O2 Delivery Room Air Room Air Room Air Room Air 05/05/20 05/05/20 05/05/20 05/05/20 19:35 19:36 19:50 19:50 Temp 97.6 97.6 97.6 97.6 Pulse 89 80 Resp B/P (MAP) 155/82 146/66 Pulse Ox 94 96 96 95 O2 Delivery Room Air Room Air Room Air Room Air 05/05/20 05/05/20 05/05/20 05/05/20 20:12 20:27 20:42 20:46 Temp 97.5 97.5 Pulse 89 90 84 84 Resp 18 B/P (MAP) 114/82 (93) 120/87 (98) 133/79 (97) 133/79 Pulse Ox 96 O2 Delivery Room Air 05/05/20 05/05/20 05/05/20 05/05/20 20:58 21:28 21:29 22:00 Pulse 97 92 97 B/P (MAP) 137/78 (97) 123/76 (92) 115/70 (85) O2 Delivery Room Air 05/06/20 05/06/20 05/06/20 05/06/20 00:07 02:07 07:00 08:00 Temp 97.2 97.5 97.2 97.5 Pulse 84 97 60 Resp 16 16 B/P (MAP) 117/76 (90) 108/78 (88) 111/81 (91) Pulse Ox 94 91 O2 Delivery Room Air Room Air Room Air 05/06/20 05/06/20 05/06/20 05/06/20 08:26 08:26 08:27 09:27 Pulse 60 60 Resp 18 18 B/P (MAP) 111/81 111/81 Pulse Ox 91 91 O2 Delivery Room Air Room Air O2 Flow Rate 6.0 6.0 05/06/20 10:06 Temp 97.6 97.6 Pulse 78 Resp 18 B/P (MAP) 95/66 (76) Pulse Ox 91 O2 Delivery Room Air Intake and Output 05/05/20 05/05/20 05/06/20 15:00 23:00 07:00 Intake Total 1350 ml 100 ml Output Total 125 ml Balance 1225 ml 100 ml Justicifation of Admission Dx: Justifications for Admission: Justification of Admission Dx: Comment: (Open fracture) LASHELL WALKER MD May 06, 2020 13:51
[2020-05-06] MEDS: WARFARIN 5 MG TABLET. PO SCH (16:40)
[2020-05-06] MEDS: HYDROcodone/APAP 5/325MG 1 TAB TABLET PO PRN (18:13)
--- NOTE | 2020-05-06 18:50 | PDOC ---
PROGRESS NOTES Date of Service DATE: 05/06/20 TIME: 18:48 Subjective Subjective Problems overnight: Toe is feeling much better pain well controlled Objective Vital Signs Vital Signs Date Time Temp Pulse Resp B/P (MAP) Pulse Ox O2 Delivery O2 Flow Rate FiO2 05/06/20 18:13 18 93 Nasal Cannula 2.0 05/06/20 14:17 97.9 80 107/41 (63) 97.9 Physical Exam She does have some bloody drainage on her dressing and some baseline relative paresthesia in her feet pin fixation is intact Labs Laboratory Tests Test 05/05/20 14:00 05/05/20 20:35 05/06/20 04:00 Coronavirus (PCR) Not detected (Not Detected) SARS-CoV-2 Antigen (Rapid) Negative (NEGATIVE) Prothrombin Time 26.3 SEC (11.7-14.0) 23.9 SEC (11.7-14.0) Prothromb Time International Ratio 2.4 (0.8-1.1) 2.2 (0.8-1.1) White Blood Count 10.5 x10^3/uL (4.0-11.0) Red Blood Count 4.12 x10^6/uL (3.50-5.40) Hemoglobin 12.0 g/dL (12.0-15.5) Hematocrit 37.6 % (36.0-47.0) Mean Corpuscular Volume 91 fL (79-100) Mean Corpuscular Hemoglobin 29 pg (25-35) Mean Corpuscular Hemoglobin Concent 32 g/dL (31-37) Red Cell Distribution Width 18.4 % (11.5-14.5) Platelet Count 106 x10^3/uL (140-400) Neutrophils (%) (Auto) 93 % (31-73) Lymphocytes (%) (Auto) 5 % (24-48) Monocytes (%) (Auto) 2 % (0-9) Eosinophils (%) (Auto) 0 % (0-3) Basophils (%) (Auto) 0 % (0-3) Neutrophils # (Auto) 9.8 x10^3/uL (1.8-7.7) Lymphocytes # (Auto) 0.5 x10^3/uL (1.0-4.8) Monocytes # (Auto) 0.2 x10^3/uL (0.0-1.1) Eosinophils # (Auto) 0.0 x10^3/uL (0.0-0.7) Basophils # (Auto) 0.0 x10^3/uL (0.0-0.2) Segmented Neutrophils % 93 % (35-66) Lymphocytes % 5 % (24-48) Monocytes % 2 % (0-10) Platelet Estimate Decreased (ADEQUATE) Polychromasia Slight Anisocytosis Slight Acanthocytes Occ Sodium Level 139 mmol/L (136-145) Potassium Level 5.2 mmol/L (3.5-5.1) Chloride Level 104 mmol/L (98-107) Carbon Dioxide Level 25 mmol/L (21-32) Anion Gap 10 (6-14) Blood Urea Nitrogen 37 mg/dL (7-20) Creatinine 1.9 mg/dL (0.6-1.0) Estimated GFR (Cockcroft-Gault) 26.1 Glucose Level 278 mg/dL (70-99) Calcium Level 8.4 mg/dL (8.5-10.1) Laboratory Tests Test 05/05/20 20:35 05/06/20 04:00 Prothrombin Time 26.3 SEC (11.7-14.0) 23.9 SEC (11.7-14.0) Prothromb Time International Ratio 2.4 (0.8-1.1) 2.2 (0.8-1.1) White Blood Count 10.5 x10^3/uL (4.0-11.0) Red Blood Count 4.12 x10^6/uL (3.50-5.40) Hemoglobin 12.0 g/dL (12.0-15.5) Hematocrit 37.6 % (36.0-47.0) Mean Corpuscular Volume 91 fL (79-100) Mean Corpuscular Hemoglobin 29 pg (25-35) Mean Corpuscular Hemoglobin Concent 32 g/dL (31-37) Red Cell Distribution Width 18.4 % (11.5-14.5) Platelet Count 106 x10^3/uL (140-400) Neutrophils (%) (Auto) 93 % (31-73) Lymphocytes (%) (Auto) 5 % (24-48) Monocytes (%) (Auto) 2 % (0-9) Eosinophils (%) (Auto) 0 % (0-3) Basophils (%) (Auto) 0 % (0-3) Neutrophils # (Auto) 9.8 x10^3/uL (1.8-7.7) Lymphocytes # (Auto) 0.5 x10^3/uL (1.0-4.8) Monocytes # (Auto) 0.2 x10^3/uL (0.0-1.1) Eosinophils # (Auto) 0.0 x10^3/uL (0.0-0.7) Basophils # (Auto) 0.0 x10^3/uL (0.0-0.2) Segmented Neutrophils % 93 % (35-66) Lymphocytes % 5 % (24-48) Monocytes % 2 % (0-10) Platelet Estimate Decreased (ADEQUATE) Polychromasia Slight Anisocytosis Slight Acanthocytes Occ Sodium Level 139 mmol/L (136-145) Potassium Level 5.2 mmol/L (3.5-5.1) Chloride Level 104 mmol/L (98-107) Carbon Dioxide Level 25 mmol/L (21-32) Anion Gap 10 (6-14) Blood Urea Nitrogen 37 mg/dL (7-20) Creatinine 1.9 mg/dL (0.6-1.0) Estimated GFR (Cockcroft-Gault) 26.1 Glucose Level 278 mg/dL (70-99) Calcium Level 8.4 mg/dL (8.5-10.1) Assessment Assessment POD#1 irrigation debridement fixation of an open great toe fracture Plan Plan of Care Mobilize weightbearing as tolerated on her heel Expect dressing change tomorrow Continue medical supportive care Justicifation of Admission Dx: Justifications for Admission: Justification of Admission Dx: N/A PAMELA GARY MD May 06, 2020 18:50
[2020-05-06] MEDS: ATORVASTATIN CALCIUM 20 MG TABLET PO SCH (20:38)
[2020-05-07 03:12] VITALS: BP 99/67
[2020-05-07 05:51] LABS: BASO % 0 % (0-3); EOS % 0 % (0-3); HEMATOCRIT 31.7 % (36.0-47.0); HEMOGLOBIN 10.4 g/dL (12.0-15.5); LYMPH # 1.1 x10^3/uL (1.0-4.8); LYMPH % 14 % (24-48); MEAN CORPUSCULAR HEMOGLOBIN 29 pg (25-35); MEAN CORPUSCULAR HGB CONC 33 g/dL (31-37); MEAN CORPUSCULAR VOLUME 89 fL (79-100); MONO # 0.6 x10^3/uL (0.0-1.1); MONO % 7 % (0-9); NEUT # 6.5 x10^3/uL (1.8-7.7); NEUT % 79 % (31-73); PLATELET COUNT 108 x10^3/uL (140-400); RED BLOOD COUNT 3.58 x10^6/uL (3.50-5.40); RED CELL DISTRIBUTION WIDTH 17.9 % (11.5-14.5); WHITE BLOOD COUNT 8.2 x10^3/uL (4.0-11.0)
[2020-05-07 06:09] LABS: PROTHROMBIN TIME PATIENT 23.7 SEC (11.7-14.0)
[2020-05-07 06:26] LABS: CALCIUM 8.5 mg/dL (8.5-10.1); CREATININE 2.3 mg/dL (0.6-1.0); GFR 20.9
[2020-05-07 07:00] VITALS: BP 118/79
[2020-05-07] MEDS: METOPROLOL TART IMMED RELEASE 50 MG TABLET. PO SCH (08:17)
[2020-05-07] MEDS: FERROUS SULFATE 325 MG TABLET. PO SCH (08:18)
[2020-05-07] MEDS: HYDROcodone/APAP 5/325MG 1 TAB TABLET PO PRN ×2 (08:18→16:52)
[2020-05-07] MEDS: amLODIPine BESYLATE 5 MG TABLET PO SCH (08:18)
[2020-05-07] MEDS: TORSEMIDE 20 MG TABLET. PO SCH (09:00)
[2020-05-07 10:41] VITALS: BP 119/52
[2020-05-07 14:34] VITALS: BP 115/64
[2020-05-07] MEDS ORDERED: HYDR-2761 PO (16:20)
[2020-05-07] MEDS ORDERED: CEPH250C PO (16:20)
[2020-05-07] MEDS: WARFARIN 5 MG TABLET. PO SCH (16:22)
--- NOTE | 2020-05-07 16:24 | PDOC3 ---
Discharge Summary Visit Information Date of Admission: May 05, 2020 Date of Discharge: May 07, 2020 Admitting Diagnosis Comment: Open left great toe fracture Atrial fibrillation essential hypertension chronic anticoagulation Final Diagnosis Open left great toe fracture Atrial fibrillation essential hypertension chronic anticoagulation Brief Hospital Course Allergies Allergies Coded Allergies Type Severity Reaction Last Updated Verified No Known Allergies Allergy Unknown 10/05/15 Yes Vital Signs Vital Signs Date Time Temp Pulse Resp B/P (MAP) Pulse Ox O2 Delivery O2 Flow Rate FiO2 05/07/20 14:34 97.6 69 17 115/64 (81) 91 Room Air 97.6 05/07/20 09:18 2.0 Lab Results Laboratory Tests Test 05/05/20 20:35 05/06/20 04:00 05/07/20 05:00 Prothrombin Time 26.3 SEC (11.7-14.0) 23.9 SEC (11.7-14.0) 23.7 SEC (11.7-14.0) Prothromb Time International Ratio 2.4 (0.8-1.1) 2.2 (0.8-1.1) 2.1 (0.8-1.1) White Blood Count 10.5 x10^3/uL (4.0-11.0) 8.2 x10^3/uL (4.0-11.0) Red Blood Count 4.12 x10^6/uL (3.50-5.40) 3.58 x10^6/uL (3.50-5.40) Hemoglobin 12.0 g/dL (12.0-15.5) 10.4 g/dL (12.0-15.5) Hematocrit 37.6 % (36.0-47.0) 31.7 % (36.0-47.0) Mean Corpuscular Volume 91 fL (79-100) 89 fL (79-100) Mean Corpuscular Hemoglobin 29 pg (25-35) 29 pg (25-35) Mean Corpuscular Hemoglobin Concent 32 g/dL (31-37) 33 g/dL (31-37) Red Cell Distribution Width 18.4 % (11.5-14.5) 17.9 % (11.5-14.5) Platelet Count 106 x10^3/uL (140-400) 108 x10^3/uL (140-400) Neutrophils (%) (Auto) 93 % (31-73) 79 % (31-73) Lymphocytes (%) (Auto) 5 % (24-48) 14 % (24-48) Monocytes (%) (Auto) 2 % (0-9) 7 % (0-9) Eosinophils (%) (Auto) 0 % (0-3) 0 % (0-3) Basophils (%) (Auto) 0 % (0-3) 0 % (0-3) Neutrophils # (Auto) 9.8 x10^3/uL (1.8-7.7) 6.5 x10^3/uL (1.8-7.7) Lymphocytes # (Auto) 0.5 x10^3/uL (1.0-4.8) 1.1 x10^3/uL (1.0-4.8) Monocytes # (Auto) 0.2 x10^3/uL (0.0-1.1) 0.6 x10^3/uL (0.0-1.1) Eosinophils # (Auto) 0.0 x10^3/uL (0.0-0.7) 0.0 x10^3/uL (0.0-0.7) Basophils # (Auto) 0.0 x10^3/uL (0.0-0.2) 0.0 x10^3/uL (0.0-0.2) Segmented Neutrophils % 93 % (35-66) Lymphocytes % 5 % (24-48) Monocytes % 2 % (0-10) Platelet Estimate Decreased (ADEQUATE) Polychromasia Slight Anisocytosis Slight Acanthocytes Occ Sodium Level 139 mmol/L (136-145) 140 mmol/L (136-145) Potassium Level 5.2 mmol/L (3.5-5.1) 5.0 mmol/L (3.5-5.1) Chloride Level 104 mmol/L (98-107) 104 mmol/L (98-107) Carbon Dioxide Level 25 mmol/L (21-32) 31 mmol/L (21-32) Anion Gap 10 (6-14) 5 (6-14) Blood Urea Nitrogen 37 mg/dL (7-20) 55 mg/dL (7-20) Creatinine 1.9 mg/dL (0.6-1.0) 2.3 mg/dL (0.6-1.0) Estimated GFR (Cockcroft-Gault) 26.1 20.9 Glucose Level 278 mg/dL (70-99) 146 mg/dL (70-99) Calcium Level 8.4 mg/dL (8.5-10.1) 8.5 mg/dL (8.5-10.1) Laboratory Tests Test 05/07/20 05:00 White Blood Count 8.2 x10^3/uL (4.0-11.0) Red Blood Count 3.58 x10^6/uL (3.50-5.40) Hemoglobin 10.4 g/dL (12.0-15.5) Hematocrit 31.7 % (36.0-47.0) Mean Corpuscular Volume 89 fL (79-100) Mean Corpuscular Hemoglobin 29 pg (25-35) Mean Corpuscular Hemoglobin Concent 33 g/dL (31-37) Red Cell Distribution Width 17.9 % (11.5-14.5) Platelet Count 108 x10^3/uL (140-400) Neutrophils (%) (Auto) 79 % (31-73) Lymphocytes (%) (Auto) 14 % (24-48) Monocytes (%) (Auto) 7 % (0-9) Eosinophils (%) (Auto) 0 % (0-3) Basophils (%) (Auto) 0 % (0-3) Neutrophils # (Auto) 6.5 x10^3/uL (1.8-7.7) Lymphocytes # (Auto) 1.1 x10^3/uL (1.0-4.8) Monocytes # (Auto) 0.6 x10^3/uL (0.0-1.1) Eosinophils # (Auto) 0.0 x10^3/uL (0.0-0.7) Basophils # (Auto) 0.0 x10^3/uL (0.0-0.2) Prothrombin Time 23.7 SEC (11.7-14.0) Prothromb Time International Ratio 2.1 (0.8-1.1) Sodium Level 140 mmol/L (136-145) Potassium Level 5.0 mmol/L (3.5-5.1) Chloride Level 104 mmol/L (98-107) Carbon Dioxide Level 31 mmol/L (21-32) Anion Gap 5 (6-14) Blood Urea Nitrogen 55 mg/dL (7-20) Creatinine 2.3 mg/dL (0.6-1.0) Estimated GFR (Cockcroft-Gault) 20.9 Glucose Level 146 mg/dL (70-99) Calcium Level 8.5 mg/dL (8.5-10.1) Brief Hospital Course History of Present Illness History of Present Illness Patient is a 69-year-old female, with past medical history of A. fib on warfarin therapy, presents to the ER after left foot injury she sustained this morning at home. Patient states she hit her left first toe on a door frame this morning in her house. Her foot began bleeding at that time so she wrapped her foot on a towel, and contacted her family members. She denies any significant pain at the time of the injury, but she was urged to seek medical attention by her family because of significant bleeding. Patient denies any other associated symptoms, including fever or chills. Patient seen in consultation by Dr. Hansen who took the patient to the operating room in order to proceed with the following Preoperative diagnosis: Open left great toe fracture Postoperative diagnosis: Same Operative procedure: Irrigation debridement and fixation of open left great toe fracture and laceration repair Surgeon: Tyrone Anesthesia: General Estimated blood loss: 25 cc Complications: None Operative indications: Zehra is a 69-year-old female that presented to [facility] emergency department today after stubbing her toe on a door frame while walking. She had the sudden onset of deformity of her toe and bleeding and was observed to have an open great toe fracture and was sent to [place] for further evaluation and treatment. I had gone over with her that there is increased risk because of the open fracture of infection possibility of nonhealing nail deformity, ongoing pain or other complications. We talked about the rationale for operative treatment including cleaning the area thoroughly fixation of her fracture and repair of the laceration and the possibility even under the best of circumstances of infection nonhealing pain medical or other anesthetic complications among others all her questions were answered and she wishes to proceed with surgical evaluation and treatment. Operative text: Patient was identified procedure verified patient placed in the supine position on the operating table. After adequate amounts of general anesthesia were administered the left lower extremity was prepped and draped in standard sterile fashion. After timeout was performed patient procedure identified and verified the left great toe was debrided and clotted blood was removed and any devitalized tissue removed. There was no gross contamination noted. The nail fold area was preserved but she had a large laceration at the level of the fracture extending obliquely around the medial and lateral aspects of the toe. All toenails were long and put her at more risk of trauma and all 5 toenails were trimmed. The great toe was then reduced and pinned under fluoroscopic guidance with a 0.062 K wire. Lacerations were repaired with nylon suture in a simple fashion. K wire was trimmed and a Demetris ball was placed for protection. Sterile dressings were then placed. Patient was returned to recovery room in stable condition having tolerated procedure well Patient recovered well from her surgical procedure and she was deemed appropriate for discharge from the orthopedic standpoint of view with recommendations to mobilize weightbearing as tolerated on her heel dressing changes, antibiotics. No changes were made to her medications at home and she was given a prescription for Percocet for moderate to severe pain. Patient seems to be doing quite well with Tylenol for pain control. Reassurance provided and the signs and symptoms of alarm and when to seek medical attention were discussed prior to dismissal all of her concerns were addressed to the best of my abilities. Encouraged to follow-up with Dr. Hansen and her primary care physician in the outpatient setting Discharge Information Condition at Discharge: Improved Follow Up: Weeks Disposition/Orders: D/C to Home Scheduled Allopurinol (Allopurinol) 300 Mg Tablet, 300 MG PO DAILY, (Reported) Entered as Reported by: AMOS CAMACHO on 09/14/171936 Last Action: HELD on 05/05/201800 by CHRISTINE ARECHIGA MD Amlodipine Besylate (Amlodipine Besylate) 5 Mg Tablet, 5 MG PO DAILY, (Reported) Entered as Reported by: AMOS CAMACHO on 09/14/171936 Last Action: Continued on 05/05/201800 by CHRISTINE ARECHIGA MD Atorvastatin Calcium (Atorvastatin Calcium) 20 Mg Tablet, 20 MG PO HS for FOR CHOLESTEROL, #30 Ref 0 (Reported) Entered as Reported by: AMOS CAMACHO on 09/14/171936 Last Action: Continued on 05/05/201800 by CHRISTINE ARECHIGA MD Cephalexin (Cephalexin) 250 Mg Capsule, 500 MG PO BID for aTB for 7 Days, #28 Prescribed by: LASHELL WALKER MD on 05/07/20 1620 Cholecalciferol (Vitamin D3) (Vitamin D) 50,000 Unit Capsule, 50,000 UNIT PO DAILY, (Reported) Entered as Reported by: AARON FAUST on 09/14/17 1036 Last Action: HELD on 05/05/201800 by CHRISTINE ARECHIGA MD Ferrous Sulfate (Ferrous Sulfate) 325 Mg Tablet, 325 MG PO DAILY, (Reported) Entered as Reported by: AARON FAUST on 09/14/17 1036 Last Action: Continued on 05/05/201800 by CHRISTINE ARECHIGA MD Metoprolol Tartrate (Metoprolol Tartrate) 100 Mg Tablet, 100 BID for cardiac, (Reported) Entered as Reported by: NATHALIA CORONEL on 05/05/201403 Last Action: Converted on 05/05/201800 by CHRISTINE ARECHIGA MD Sertraline Hcl (Sertraline Hcl) 50 Mg Tablet, 50 MG PO DAILY for ANTI- DEPRESSANT, Ref 0 (Reported) Entered as Reported by: AMOS CAMACHO on 09/14/17 1937 Torsemide (Torsemide) 20 Mg Tablet, 20 DAILY for cardiac, (Reported) Entered as Reported by: NATHALIA CORONEL on 05/05/201403 Last Action: Continued on 05/05/201800 by CHRISTINE ARECHIGA MD Warfarin Sodium (Warfarin Sodium) 2 Mg Tablet, 1 TAB PO QODAY, #90 Ref 1 (Repor gisel) Entered as Reported by: SAMMY TADEO on 09/19/171123 Last Action: HELD on 05/05/201800 by CHRISTINE ARECHIGA MD Warfarin Sodium (Coumadin) 1 Mg Tablet, 1 TAB PO QODAY, #30 Ref 5 (Reported) Entered as Reported by: SAMMY TADEO on 09/19/171123 Last Action: HELD on 05/05/201800 by CHRISTINE ARECHIGA MD Scheduled PRN Hydrocodone Bit/Acetaminophen (Hydrocodone-Apap 5-325 ) 1 Tab Tablet, 1 TAB PO PRN Q4HRS PRN for MODERATE PAIN for 3 Days, #15 Prescribed by: LASHELL WALKER MD on 05/07/20 1620 Discontinued Medications Furosemide (Furosemide) 20 Mg Tablet, 20 MG PO DAILY, (Reported) Entered as Reported by: NATALIYA EVANS on 10/05/15 1341 Last Action: Discontinued on 05/05/20 1404 by NATHALIA CORONEL Metoprolol Tartrate (Metoprolol Tartrate) 25 Mg Tablet, 1 TAB PO BID, #180 Ref 1 (Reported) Entered as Reported by: NATALIYA EVANS on 10/05/15 1339 Last Action: Discontinued on 05/05/20 1404 by NATHALIA CORONEL Metoprolol Tartrate (Metoprolol Tartrate) 50 Mg Tablet, 75 MG PO BID for FOR HYPERTENSION, #60 Ref 0 (Reported) Entered as Reported by: AMOS CAMACHO on 09/14/171936 Last Action: Discontinued on 05/05/20 1404 by NATHALIA CORONEL Justicifation of Admission Dx: Justifications for Admission: Justification of Admission Dx: N/A LASHELL WALKER MD May 07, 2020 16:24
--- NOTE | 2020-05-07 19:09 | NUR ---
Discharge Note: [facility] Discharge instructions and discharge home medications reviewed with Patient and a copy given. All questions have been answered and understanding verbalized. The following instructions and handouts were given: fractures and infection. Half shoe from [employer] and walker given to patient. Discontinued iv line and catheter intact. Patient discharged to home with self care with grand daughter.
[2020-05-07] MEDS ORDERED: CEPHALEXIN 250 MG CAPSULE. PO SCH (21:00)
== END 2020-05-07 19:12 | disposition home or self-care (01) | DRG 503 ==
LOC: 2 SOUTH 12:00
PROVIDERS: ADMIT Family Medicine; ATTEND Family Medicine
PROC: 0QBR0ZZ Excision of Left Toe Phalanx, Open Approach (ICD-10-PCS; 2020-05-05)
PROC: 0QSR34Z Reposition Left Toe Phalanx with Internal Fixation Device, Percutaneous Approach (ICD-10-PCS; principal; 2020-05-05 16:15)
DX: S92.402B Displaced unspecified fracture of left great toe, initial encounter for open fracture (principal); N17.0 Acute kidney failure with tubular necrosis; I12.9 Hypertensive chronic kidney disease with stage 1 through stage 4 chronic kidney disease, or unspecified chronic kidney disease; N18.9 Chronic kidney disease, unspecified; I48.91 Unspecified atrial fibrillation; W22.09XA Striking against other stationary object, initial encounter; Z79.01 Long term (current) use of anticoagulants; Z82.49 Family history of ischemic heart disease and other diseases of the circulatory system; Z96.653 Presence of artificial knee joint, bilateral; Z83.3 Family history of diabetes mellitus; G62.9 Polyneuropathy, unspecified; K21.9 Gastro-esophageal reflux disease without esophagitis; Z20.828 Contact with and (suspected) exposure to other viral communicable diseases
CPT/HCPCS: 36415; 76000; 80048; 85007; 85025; 85610; 87426; 99285; A7015; J0690; J1100; J1170; J2270; J2405; J2704; J3010; J3490; J7120; 97116-GP; G0378; U0003-CS